=== PATIENT | female | born 1990 | race Caucasian/White ===

== ENCOUNTER 2025-02-05 06:51 | Emergency (ER) | payer BC, SELFPAY ==
[2025-02-05 06:54] VITALS: BP 150/109; BMI 34.6
[2025-02-05 07:02] VITALS: BP 163/106
[2025-02-05] MEDS: NSS 1000 IV (07:22)
[2025-02-05] MEDS: NSS 500 IV (07:22)
[2025-02-05] MEDS: PROTONIX IV 40 MG IV (07:26)
[2025-02-05 07:30] VITALS: BP 125/90
[2025-02-05] MEDS: ZOFRAN 4 MG IV (07:31)
[2025-02-05 07:32] LABS: Hematocrit 38.8 % (37.0-47.0); Hemoglobin 13.1 g/dL (12.0-16.0); Mean Corp Hgb Conc. 33.8 g/dL (33.0-37.0); Mean Corpuscular Volume 92.4 fL (81.0-99.0); Nucleated Red Blood Cells % 0 %; Platelet Count 329 10^3/uL (130-400); Red Cell Dist. Width 12.2 % (11.5-14.5)
[2025-02-05 07:41] LABS: HCG, Serum Qualitative Screen Negative
[2025-02-05 07:45] LABS: ALT (SGPT) 16 U/L (0-35); AST (SGOT) 22 U/L (14-36); Albumin 4.3 g/dl (3.5-5.0); Alkaline Phosphatase 80 U/L (38-126); Blood Urea Nitrogen 14 mg/dl (7-17); Calcium 9.2 mg/dl (8.4-10.2); Carbon Dioxide 24 mmol/L (22-30); Chloride 104 mmol/L (98-107); Estimated Creatinine Clearance 106 ml/min; Glucose 111 mg/dl (70-99); Magnesium 1.7 mg/dl (1.6-2.3); Potassium 3.6 mmol/L (3.5-5.1); Sodium 134 mmol/L (135-145); Total Protein 7.3 g/dl (6.3-8.2); eGFR > 60.00
[2025-02-05 07:50] LABS: COVID-19 Antigen Negative (Negative)
[2025-02-05 08:00] VITALS: BP 119/90
--- NOTE | 2025-02-05 09:00 | ED.GENMED ---
History of Present Illness
General
Chief Complaint: Abdominal Pain
Source: patient
Exam Limitations: none
Time Seen by Provider: 02/05/25 07:10
Nursing documentation reviewed up to this point in time: agreed with
History of Present Illness
History of Present Illness:
Patient presents to ED secondary to persistent nausea and vomiting, and unable to keep anything down over the past 24 hours. Patient states that she started to experience fever, chills and intermittent cough over the past 1 week. Over the weekend,
patient felt as though she was feeling better until she started having these vomiting episodes. Denies diarrhea. Denies chest pain. Denies shortness of breath. Denies back pain. Denies leg pain or swelling. Denies recent travel or surgery.
Denies direct sick contact. However, patient does use public transportation and recently traveled to [place].
Review of Systems
Review of Systems
Allergies reviewed?: Yes
All Other Systems: ROS reviewed and negative except as documented in HPI and ROS
Constitutional: Reports fever and chills
EENT: Reports no symptoms
Respiratory: Reports cough; Denies trouble breathing
Cardiac: Reports no symptoms; Denies chest pain, palpitations or syncope
ABD/GI: Reports abdominal pain, nausea and vomiting; Denies diarrhea
Musculoskeletal: Reports no symptoms
Skin: Reports no symptoms
Neurological: Reports no symptoms
Phy Exam
Physical Exam
Physical Exam:
Physical Exam
General: mild distress, not acutely ill. afebrile
Head: nc/at. eomi
Neck: supple. no meningeal signs.
Heart: regular rate and rhythm, but tachycardic.
Lungs: no acute respiratory distress. clear bilaterally
Abdomen: normal bowel sounds. not tender.
Neuro: alert and oriented x 3. no focal neurological deficits
Skin: no rash
Psychiatric: well kept. interactive and cooperative
Extremities: no edema. no calf tenderness.
Course
Orders/Labs/Results
Orders:
Orders
10/21/25 07:14
Electrocardiogram (*1) Urgent
Reason for Study: QTc Monitoring
EKG- Treatment ONCE
0.9% Sodium Chloride 1000 ml [Nss] 1,000 ml IV BOLUS
Pantoprazole [Protonix IV] 40 mg IV NOW STA
02/05/25 07:15
0.9% Sodium Chloride 500 ml [Nss] 500 ml IV BOLUS
Test Result ONCE
CR Chest - 2 Views Urgent
Comment:
Reason For Exam: fever/cough
02/05/25 07:23
COVID-19 Antigen Urgent
Source: Nasal Swab
Complete Blood Count/With Diff Urgent
Comprehensive Metabolic Panel Urgent
HCG, Serum Qualitative Screen Urgent
Magnesium Urgent
Influenza A+B Rapid Molecular Urgent
KIT Source: Nasal Swab
Specimen Description:
02/05/25 07:30
Ondansetron Injectable [Zofran] 4 mg .ROUTE .STK-MED ONE
Ondansetron Injectable [Zofran] 4 mg IV NOW STA
02/05/25 08:59
Acetaminophen [Tylenol] 1,000 mg PO NOW STA
02/05/25 09:53
Urinalysis Reflex To Culture Urgent
Date Specimen was Collected: 02/05/25
Time Specimen was Collected: 09:49
Urine Microscopic Reflex Cult Urgent
Abnormal Lab Results
02/05/25 02/05/25
07:23 09:53
MCH 31.2 H pg
(27.0-31.0)
Sodium 134 L mmol/L
(135-145)
Glucose 111 H mg/dl
(70-99)
Urine Bacteria (Reflex) Few A
(Negative)
Urine Albumin (Reflex) 1+ A
(Neg - Trace)
02/05/25 07:23
02/05/25 07:23
Vital Signs
Initial and Last Documented VS:
Initial Vital Signs
Temp Pulse Resp BP Pulse Ox
99.5 F 128 22 150/109 97
02/05/25 06:54 02/05/25 06:54 02/05/25 06:54 02/05/25 06:54 02/05/25 06:54
Last Documented Vital Signs
Temp Pulse Resp BP Pulse Ox
99.5 F 94 20 119/90 99
02/05/25 06:54 02/05/25 11:30 02/05/25 11:30 02/05/25 08:00 02/05/25 09:15
MDM/Problems Addressed
MDM/Problems Addressed:
Patient reports significant improvement symptoms after treatment. Initial tachycardia resolved after IV fluids. History and exam consistent with likely nonspecific viral illness versus bronchitis. Patient feels comfortable going home at this
time. As such, patient will be discharged home with empiric course of antibiotic, i.e. Z-Huseyin, along with antiemetic, as well as PCP follow-up as an outpatient. Return precaution provided.
*Pulse Oximetry
SaO2: 97
Oxygen Mode of Delivery: Room air
Patient hypoxic: no
*Critical Care Note
Total Time (30-74mins, 75-104mins- exclusive of procedures): Not Applicable
ED Attending Note
-
Portions of this chart may have been created with voice recognition software.� Occasional wrong word or��sound alike� substitutions may have occurred due to the inherent limitations of voice recognition software.
Discharge Plan
Departure
Patient Disposition: Home (Routine Discharge)
Date of Disposition: 02/05/25
Time of Disposition: 11:41
Patient with high blood pressure during this ER visit?: Yes
Condition: Fair
Discharge Problem:
Acute viral syndrome
Instructions: Bronchitis in adults - ED (DC)
Prescriptions:
New
azithromycin [Zithromax Z-Huseyin] 250 mg tablet
250 mg PO DAILY 6 Days Qty: 6 0RF
ondansetron 4 mg Tablet,Disintegrating
4 mg PO TIDPRN PRN (Reason: nausea/vomiting) Qty: 12 0RF
Referrals:
NONE,* [Family Provider, Internal Medicine]
Stand Alone Forms: Return to Work
Activity Restrictions/Additional Instructions:
As discussed, please follow-up with your primary care physician as scheduled this week for reevaluation. Please consider return to ED with worsening symptoms. Your prescriptions have been sent electronically to [facility] pharmacy in [place].
Interventions
Interventions:
*Risk Screen - Suicide Last Done: 02/05/25 06:54
*General Assessment Last Done: 02/05/25 06:54
*Neglect/Abuse Screening Last Done: 02/05/25 06:54
*ED- Fall Risk Assessment Last Done: 02/05/25 06:54
*ED COVID-19 Vaccine History Last Done: 02/05/25 07:04
*ED Influenza Vaccine History Last Done: 02/05/25 07:04
*Nursing Disposition Last Done: 02/05/25 12:11
HI-Vpvwjg-[id number] Assessment Last Done: 02/05/25 09:00
Discharge Date and Time
Discharge Date/Time: 02/05/25 12:12
Print Language: CZECH
[2025-02-05] MEDS: TYLENOL 1000 MG PO (09:55)
[2025-02-05 10:12] LABS: Urine Character Clear (Clear)
[2025-02-05 10:23] LABS: Urine Red Blood Cell 0-2 /HPF (0-2)
== END 2025-02-05 12:12 | disposition home or self-care (01) ==
LOC: EMR 06:51
PROVIDERS: EMERGENCY PHYSICIAN Emergency Medicine
DX: B34.9 Viral infection, unspecified (principal); R11.2 Nausea with vomiting, unspecified; Z11.52 Encounter for screening for COVID-19
CPT/HCPCS: 99285; 96374; 96375; 96361; 71046; 80053; 81003; 81015; 83735; 84703; 85025; 87502; 87811; 93005